=== PATIENT | female | born 1960 | race Hispanic/Latino ===

== ENCOUNTER 2023-04-28 08:42 | Day surgery (SDC) | payer BC ==
[2023-04-23 13:01] VITALS: BP 109/64
[~2023-04-28] VITALS: Ht 139.7 cm; Wt 55.9 kg
[~2023-04-28 08:42] MED LIST: HYDROCODON-ACE1 EA10 PO; JARDIANCE25 MG PO; LIPITOR20 MG PO; METFORMIN HCL500 MG PO
[2023-04-28] MEDS ORDERED: OXYCODONE HCL5 MG PO (09:11)
[2023-04-28 09:13] VITALS: BP 130/53
--- NOTE | 2023-04-28 10:20 | NUR ---
PT RESTING IN BED WITH HER EYES CLOSED. RESP EVEN AND UNLABORED. OXYGEN SAT MID 90'S ON RA.
[2023-04-28 12:05] VITALS: BP 111/49
--- NOTE | 2023-04-28 12:22 | NUR ---
04/28/23 1222 Soledad العلي 1128- PT ARRIVES TO PACU SEMI KOLB POSITION. NO ORAL AIRWAY IN PLACE, PT REQUIRING MANUAL JAW THRUST, O2 AT 6L PER MASK. BOOT IN PLACE TO LEFT ANKLE, CAP REFILL 1 SECOND. ABD SOFT, NON DISTENDED. ALL MONITORS APPLIED. 1135- PT CONTINUES TO NEED INTERMITTENT AIRWAY SUPPORT, O2 REMAINS IN PLACE. LR INFUSING TO RH IV. 1140- PT REMAINS NON REACTIVE TO ALL STIMULUS. INTERMITTENT AIRWAY SUPPORT, O2 IN PLACE. 1146- PT REACTIVE AND OPENS EYES. PT BULGARIAN SPEAKING. FAMILY BROUGHT IN TO PACU TO SUPPORT PT. NO PAIN OR NAUSEA REPORTED. O2 REMOVED AT THIS TIME. 1150- NO SIGNS OF DISTRESS. PT RESTING INTERMITTENTLY. NO OTHER NEEDS, BOOT REMAIN IN PLACE. ICE PACK PLACED ON LEFT ANKLE. 1155- 1ST LITER LR COMPLETED, 2ND LITER STARTED TKO DUE TO BP. 1205- PT BROUGHT BACK TO DAY SURGERY, ALERT BUT DROWSY. CONTINUES TO DENY PAIN AND NAUSEA. DRESSING CDI. REPORT TO OSABLDO SAMS AT BEDSIDE, 1 LITER LR HANGING TKO TO . PT ON ROOM AIR. CARE OF PT TURNED OVER AT THIS TIME.
--- NOTE | 2023-04-28 12:29 | NUR ---
1205: PT RETURNS TO UNIT VIA STRETCHER FROM PACU. DROWSY ON ARRIVAL. VSS, RESP EVEN AND UNLABORED. DENIES PAIN AND NAUSEA. DAUGHTER TRANSLATING AT THE BEDSIDE. CMS WNL WITH NERVE BLOCK IN PLACE. WALKING BOOT IN PLACE. ICE WATER PROVIDED. POC DISCUSSED AND PT AGREEABLE AT THIS TIME. NO NEEDS VOICED, CALL LIGHT WITHIN REACH
[2023-04-28 13:09] VITALS: BP 100/49
--- NOTE | 2023-04-28 13:11 | NUR ---
PT EASILY AROUSABLE TO VOICE. PT REPORTS NO PAIN OR NAUSEA. RESP EVEN AND UNLABORED. OXYGEN SAT MID TO HIGH 90'S ON RA. PT DENIES THE NEED TO URINATE. PT DOES NOT WANT TO EAT ANYTHING AT THIS TIME. PT STATES SHE JUST WANTS TO SLEEP. BED IN THE LOWEST POSITION, BED RAILS UP, CALL LIGHT PROVIDED, PT'S DAUGHTER AT THE BEDSIDE.
[2023-04-28 14:04] VITALS: BP 128/71
--- NOTE | 2023-04-28 14:07 | NUR ---
PT PROVIDED MORE ICE WATER, COFFEE, AND JELL-O. SANDWICH AND SOUP ORDERED PER PT REQUEST. PT ABLE TO STAND AND PIVOT ONTO THE BEDSIDE COMMODE WITHOUT PUTTING WEIGHT ON HER OPERATIVE FOOT. PT TOLERATED WELL WITH ASSISTANCE. PT ABLE TO URINATE. PT ASSISTED BACK TO BED. SCD REPLACED TO RIGHT LEG. ICE PACK REFILLED AND APPLIED TO LEFT ANKLE. LEFT ANKLE ELEVATED ON A PILLOW. PT'S FAMILY AT THE BEDSIDE. PT HAS NO FURTHER REQUESTS AT THIS TIME. CALL LIGHT WITH PT.
--- NOTE | 2023-04-28 14:42 | NUR ---
PT WAS ABLE TO EAT HER LUNCH. PT STATES SHE FEELS READY TO GO HOME. PT GETTING DRESSED WITH HER DAUGHTER AT THE BEDSIDE. PT AND PT'S DAUGHTER UPDATED THAT DR. SYKES IS SENDING MEDICATIONS TO HER PHARMACY IN [place] FROM HIS OFFICE.
[2023-04-28 15:22] VITALS: BP 105/48
--- NOTE | 2023-04-28 15:49 | NUR ---
1530- PT ABLE TO STAND AND PIVOT TO THE BEDSIDE COMMODE. PT ABLE TO TRANSFER HERSELF TO THE WHEELCHAIR. PT TAKEN TO THE FRONT OF THE HOSPITAL VIA WHEELCHAIR AND ASSISTED INTO THE PASSENGER SIDE OF HER FAMILY'S CAR.
--- NOTE | 2023-05-02 07:31 | OR ---
[facility] [address] [place] [address] Signed DATE OF OPERATION: 04/28/2023 SURGEON: Marcella Rios MD PREOPERATIVE DIAGNOSIS: Bimalleolar ankle fracture, left. POSTOPERATIVE DIAGNOSIS: Bimalleolar ankle fracture, left. PROCEDURE PERFORMED: Open reduction and internal fixation, bimalleolar ankle fracture. REEL WINDER: EMILY Ulloa ANESTHESIA: General. BLOOD LOSS: 75 mL. IMPLANTS: A 3 x 130 FibuLock with three locking screws and 3-0 cannulated screw medially. BRIEF HISTORY: Natalee is a 63-year-old female with pain in her ankle after turning it. Risks and benefits of operative treatment discussed with her and she elected to proceed. Once consent was obtained, she was taken to the operating room. After adequate anesthesia, she was placed on operating table on a hip bump. The leg was prepped and draped in a standard sterile fashion. The distal fibula was then reduced using a percutaneous clamp and the distal fibula tip was approached through a 1 cm incision. The initial guide pin for the FibuLock set was then advanced from the tip of the fibula proximally into the body of the fibula. This was then drilled using the large drill. This was followed by the small guide caitlyn, which was advanced all the way upto the fibula. The fibula was then reamed to 3.1. A 3.0 x 130 FibuLock was then placed in the distal fibula and advanced proximally until it was well seated. The three interlocking screws were placed through separate stab incisions. Moderate bone quality was obtained. The proximal interlocking flaps were deployed prior to this. The insertion handle was then removed. Attention was turned to the medial side, which was nondisplaced. A 1 cm incision was Electronically Signed By: MARCELAL RIOS MD 05/02/23 0731 PATIENT NAME: NATALEE AMAYA OPERATIVE REPORT DATE OF : 62 REPORT #: [id number] PHYSICIAN: MARCELLA RIOS MD PCP: BECKY GAMING MD REPORT IS CONFIDENTIAL AND NOT TO BE RELEASED WITHOUT AUTHORIZATION [facility] [address] [place], [place] [address] Signed made medially and a guide pin for the 3.0 cannulated screws was placed through the medial malleolus tip proximally and engaging the body. This was then overdrilled and a 38 mm screw was placed. Excellent bone purchase was obtained on this side. The wounds were copiously irrigated with normal saline and closed with chanda. They were dressed with an Allevyn dressing and an Sohan wrap and she was placed back into a fracture boot. She tolerated the procedure well. All sponge, needle, and instrument counts were correct. Marcella Rios MD BA/[place] /[id number] Copies: ~ Electronically Signed By: MARCELLA RIOS MD 05/02/23 0731 PATIENT NAME: NATALEE AMAYA OPERATIVE REPORT DATE OF : 62 REPORT #: [id number] PHYSICIAN: MARCELLA RIOS MD PCP: BECKY GAMING MD REPORT IS CONFIDENTIAL AND NOT TO BE RELEASED WITHOUT AUTHORIZATION
== END 2023-04-28 15:30 | disposition home or self-care (01) ==
LOC: DS 08:42
PROVIDERS: ATTEND Specialist
PROC: 0QSH04Z Reposition Left Tibia with Internal Fixation Device, Open Approach (ICD-10-PCS; principal; 2023-04-28 11:30)
DX: S82.842A Displaced bimalleolar fracture of left lower leg, initial encounter for closed fracture (principal); X58.XXXA Exposure to other specified factors, initial encounter; E78.00 Pure hypercholesterolemia, unspecified; E11.9 Type 2 diabetes mellitus without complications; M19.90 Unspecified osteoarthritis, unspecified site
CPT/HCPCS: 01480; 64445; 64447; 73600; 76942; C1713; C1769; J0131; J0690; J1100; J1885; J2001; J2250; J2405; J2704; J2795; J7121